=== PATIENT | male | born 1995 | race African-American/Black ===

== ENCOUNTER 2019-08-24 11:49 | Emergency (ER) | payer SELFPAY ==
[2019-08-24 11:58] VITALS: BP 127/74
--- NOTE | 2019-08-24 13:04 | ER Document Report ---
HPI - HPI Patient complains to provider of: Abdominal pain nausea Time Seen by Provider: 08/24/19 12:57 Onset: Yesterday Onset/Duration: Sudden Quality of pain: No pain Context: 24-year-old male presents emergency department with complaints of some abdominal discomfort and nausea that started last night. He denies fever vomiting but reports some diarrhea on and off for the last couple months. Reports he had to call in sick to work at [employer] today and he needed a work note. Reports he was eating some crackers out in the waiting room prior to being seen. Reports last bowel movement was yesterday without any problems. Has not received a flu vaccine. Patient complains of generalized abdominal discomfort. Denies chronic abdominal issues. Reports he lives with his girlfriend is not sick Associated Symptoms: Nausea Exacerbated by: Denies Relieved by: Denies Similar symptoms previously: No Recently seen / treated by doctor: No Past Medical History - General Information source: Patient - Social History Smoking Status: Current Every Day Smoker Cigarette use (# per day): Yes Frequency of alcohol use: None Drug Abuse: None Occupation: [employer] Lives with: Friend - Girlfriend Family History: None Patient has suicidal ideation: No Patient has homicidal ideation: No - Medical History Medical History: Negative GI Medical History: Denies: Hx Crohn's Disease, Hx Diverticulitis, Hx Irritable Bowel Surgical Hx: Negative Vertical Provider Document - CONSTITUTIONAL Agree With Documented VS: Yes Exam Limitations: No Limitations General Appearance: WD/WN, No Apparent Distress - Nontoxic looking - HEENT HEENT: Atraumatic, Normal ENT Exam, Normocephalic. negative: Conjuctival Injection, Pharyngeal Erythema, Tympanic Membrane Bulging - NECK Neck: Normal Inspection, Supple. negative: Lymphadenopathy-Left, Lymphadenopathy-Right - RESPIRATORY Respiratory: Breath Sounds Normal, No Respiratory Distress - CARDIOVASCULAR Cardiovascular: Regular Rate, Regular Rhythm - GI/ABDOMEN Gastrointestinal: Abdomen Soft, Abdomen Non-Tender - Denies pain with palpation - BACK Back: negative: CVA Tenderness-Right, CVA Tenderness-Left - MUSCULOSKELETAL/EXTREMETIES Musculoskeletal/Extremeties: MAEW, FROM, Non-Tender - NEURO Level of Consciousness: Awake, Alert, Appropriate Motor/Sensory: No Motor Deficit - DERM Integumentary: Warm, Dry Course - Re-evaluation Re-evalutation: 08/24/19 13:43 Patient presents here because his stomach was a little upset yesterday and he felt some nausea. Patient reports he called into work sick [facility] [employer] [employer] and needs a work note. Denies symptoms at this time. Denies fever vomiting diarrhea. Denies past medical history of chronic abdominal issues. No complaints of pain with void. Patient was instructed to monitor symptoms clear liquid diet advance as tolerated and return for any concerns. Patient is nontoxic looking with no complaints of abdominal tenderness with palpation, no evidence of an acute abdomen. His symptoms have basically resolved. He is eating and drinking without complaints. Patient was instructed to follow-up with her primary care within a week or return here for worsening symptoms concerns. He verbalized understanding to all instructions. - Vital Signs Vital signs: Temp Pulse Resp BP Pulse Ox 97.6 F 66 16 127/74 H 100 08/24/19 11:56 08/24/19 11:56 08/24/19 11:56 08/24/19 11:56 08/24/19 11:56 Discharge - Discharge Clinical Impression: Nausea, Generalized abdominal pain Condition: Stable Disposition: HOME, SELF-CARE Instructions: Observation for Appendicitis (OM) Additional Instructions: *You have been evaluated for abdominal pain, nausea *Clear liquid diet advance as tolerated avoid spicy acid foods *Follow up with a primary care provider within 1 week for recheck *Return to ED for worsening condition, changes, needs *Return to ED if not better in 24 hours Monitor your blood pressure. Your blood pressure was elevated today. This may be because you were anxious, in pain or because you need medication. It is important to follow up with your primary care provider for full evaluation. Forms: Elevated Blood Pressure, Return to Work
== END 2019-08-24 13:18 | disposition home or self-care (01) ==
LOC: ER 11:49
DX: R10.84 Generalized abdominal pain (principal); R11.0 Nausea; R19.7 Diarrhea, unspecified; F17.210 Nicotine dependence, cigarettes, uncomplicated
CPT/HCPCS: 99283